=== PATIENT | male | born 1980 | race Two or more races ===

== ENCOUNTER 2024-07-12 09:16 | Day surgery (SDC) | payer OTHER ==
[2024-07-06 12:24] VITALS: BP 124/82
[2024-07-06 13:04] LABS: HEMATOCRIT 45.9 % (39.0-48.0); HEMOGLOBIN 15.1 g/dL (13-16.00); MEAN CELL VOLUME 82.8 fL (80.0-100.00); MEAN CORPUSCULAR HEMOGLOBIN 27.2 pg (27.00-32.0); MEAN CORPUSCULAR HGB CONC 32.8 g/dl (32.0-36.0); PLATELET COUNT 265 K/uL (150-450); RED BLOOD COUNT 5.54 M/uL (4.00-6.00); RED CELL DISTRIBUTION WIDTH 13.4 % (11.5-14.5)
[2024-07-06 13:04] LABS: PH,URINE 7.5 (5.0-8.0); URINE APPEARANCE Clear; URINE BILIRRUBIN Negative (NEGATIVE); URINE BLOOD Negative; URINE COLOR Yellow; URINE GLUCOSE Negative (NEGATIVE); URINE KETONE Negative (NEGATIVE); URINE LEUKOCYTE Negative; URINE NITRATE Negative; URINE PROTEIN Negative (NEGATIVE)
[2024-07-06 13:08] LABS: URINE BACTERIA 7.5 uL (0.0-1933); URINE RBC 31.7 uL (0.0-20.8)
[2024-07-06 13:24] LABS: URINE EPITHELIAL CELLS 0.4 uL (0.0-38.8); URINE WBC 0.6 uL (0.0-23.2)
[2024-07-06 13:40] LABS: INR 1.04; PARTIAL THROMBOPLASTIN TIME 29.1 SECONDS (22.0-34.0); PROTHROMBIN TIME 11.3 SECONDS (9.0-11.5)
[2024-07-06 14:04] LABS: ALBUMIN 4.1 gm/dL (3.4-5.0); BILIRUBIN TOTAL 0.56 mg/dL (0.3-1.2); CALCIUM 9.5 mg/dL (8.5-10.1); CREATININE SERUM 0.91 mg/dL (0.70-1.30); GFR 90.51; GLOBULINA 4.2 G/DL (2.4-3.5); TOTAL PROTEIN 8.3 gm/dL (6.4-8.2)
[~2024-07-12] VITALS: Ht 182.9 cm; Wt 81.6 kg
[2024-07-12] MEDS ORDERED: HEMOSTATIC MATRIX 1 KIT KIT TOP ONE (13:15)
[2024-07-12] MEDS ORDERED: CEFTRIAXONE SODIUM 2,000 MG VIAL IV ONE (13:15)
[2024-07-12] MEDS ORDERED: METRONIDAZOLE/SODIUM CHLORIDE 500 MG/100 ML PIGGYBACK IV ONE (13:15)
[2024-07-12] MEDS ORDERED: BUPIVACAINE HCL 30 ML VIAL IJ ONE (13:15)
[2024-07-12] MEDS ORDERED: DIBUCAINE 30 GM TUBE RECTAL ONE (13:15)
[2024-07-12] MEDS ORDERED: POVIDONE-IODINE 118 ML BOTT TOP ONE (13:15)
[2024-07-12] MEDS ORDERED: HYDROGEN PEROXIDE 118 ML SOLUTION TOP ONE (13:30)
== END 2024-07-12 15:28 | disposition home or self-care (01) ==
LOC: CIR.AMB 09:16
PROVIDERS: ATTEND Colon & Rectal Surgery
DX: K60.30 Anal fistula, unspecified (principal); L92.9 Granulomatous disorder of the skin and subcutaneous tissue, unspecified; R00.1 Bradycardia, unspecified